=== PATIENT | male | born 1965 | race Caucasian/White ===

== ENCOUNTER 2018-11-12 20:40 | Inpatient (IN) | payer MEDICARE, OTHER ==
[2018-11-12] MEDS: IPRATROPIUM (NEB) 0.5 MG/2.5 ML AMP INH (21:27)
[2018-11-12] MEDS: ALBUTEROL 0.083% (NEB) 2.5 MG/3 ML AMP INH (21:27)
[2018-11-12 22:10] LABS: AADO2 Venous 137.2 mmHg; MODE NASAL CANNULA; MetHgb Venous 0.5 %; Site VENOUS LINE; Venous COHb 2.5 %; Venous Fraction OxyHgb 76.2 %; Venous Oxygen Sat 78.6 mmHG (55.0-75.0); Venous Total Hemglobin 6.4 g/dl
[2018-11-12] MEDS: SODIUM CHLORIDE 0.9% 1L BAG IV* (22:20)
[2018-11-12] MEDS: METHYLPREDNISOLONE 125 MG INJ IV (22:20)
[2018-11-12] MEDS: PIPER-TAZO 3.375 GM IV (PMX) 100 ML IVPB (22:20)
[2018-11-12 22:21] LABS: ADD MAN DIFF? NO
[2018-11-12 22:28] LABS: WHITE BLOOD COUNT 8.4 10^3/ul (4.8-10.8)
[2018-11-12 22:28] LABS: BASOPHIL # 0.1 10^3/ul (0.0-0.1); BASOPHILS % 0.6 % (0.0-2.0); EOSINOPHILS # 0.1 10^3/ul (0.0-0.5); EOSINOPHILS % 1.4 % (0.0-7.0); HEMATOCRIT 35.5 % (42.0-52.0); LYMPHOCYTES % 23.6 % (15.0-51.0); MEAN CORPUSCULAR VOLUME 90.3 fl (82.0-101.0); MEAN PLATELET VOLUME 12.4 fl (7.4-10.4); MONOCYTE # 0.9 10^3/ul (0.3-0.9); MONOCYTES % 10.5 % (0.0-11.0); NEUTROPHIL # 5.4 10^3/ul (1.6-7.5); NEUTROPHILS % 63.5 % (39.0-77.0); PLATELET COUNT 172 10^3/UL (140-415); RED BLOOD COUNT 3.93 10^6/ul (4.70-6.10); RED CELL DISTRIBUTION WIDTH 16.3 % (11.5-14.5)
[2018-11-12 22:44] LABS: POTASSIUM 4.3 mmol/L (3.5-5.1)
[2018-11-12 22:48] LABS: PROTIME 14.3 Sec (11.9-14.9); PT RATIO 1.1
[2018-11-12 22:49] LABS: ALANINE AMINOTRANSFERASE 20 IU/L (13-69); ALBUMIN 3.6 g/dl (3.3-4.9); ALKALINE PHOSPHATASE 79 IU/L (42-121); ANION GAP 6 (5-13); ASPARTATE AMINO TRANSFERASE 35 IU/L (15-46); BILIRUBIN,INDIRECT 0.4 mg/dl (0-1.1); BILIRUBIN,TOTAL 0.4 mg/dl (0.2-1.3); BLOOD UREA NITROGEN 30 mg/dl (7-20); C-REACTIVE PROTEIN 1.8 mg/dl (0.0-0.9); CALCIUM 8.4 mg/dl (8.4-10.2); CARBON DIOXIDE 35 mmol/L (21-31); CHLORIDE 98 mmol/L (97-110); CREATININE 1.71 mg/dl (0.61-1.24); Estimated GFR 42 mL/min (>60); GLUCOSE 189 mg/dl (70-220); PARTIAL THROMBOPLASTIN TIME 34.3 Sec (23.0-35.0); SODIUM 139 mmol/L (135-144); TOTAL PROTEIN 7.6 g/dl (6.1-8.1)
[2018-11-12 22:49] LABS: LACTIC ACID 3.2 mmol/L (0.5-2.0)
[2018-11-12] MEDS: VANCOMYCIN 1 GM (PMX) 250 ML IVPB (22:55)
[2018-11-12] MEDS: HYDROCODONE/APAP (5/325) TAB PO (22:55)
[2018-11-12 22:57] LABS: B-TYPE NATRIURETIC PEPTIDE 232 PG/ML (0-125); TROPONIN-I < 0.012 ng/ml (0.000-0.120)
[2018-11-12 23:38] LABS: ERYTHROCYTE SEDIMENTATION RATE 63 mm/Hr (0-20)
[2018-11-12] MEDS ORDERED: GLUCOSE GEL 15 GRAM TUBE BUCCAL (23:45)
[2018-11-12] MEDS ORDERED: GLUCOSE GEL 15 GRAM TUBE PO ×2 (23:45)
[2018-11-12] MEDS ORDERED: DEXTROSE 50% 50 ML SYRINGE IV ×2 (23:45)
[2018-11-12] MEDS ORDERED: GLUCAGON 1 MG INJ IM (23:45)
[2018-11-13] MEDS ORDERED: ONDANSETRON 4 MG INJ IV
[2018-11-13] MEDS ORDERED: ACETAMINOPHEN 325 MG TAB PO
[2018-11-13] MEDS ORDERED: NACL 0.9% 3 ML SYG IV
[2018-11-13 00:46] LABS: LACTIC ACID 1.5 mmol/L (0.5-2.0)
[2018-11-13] MEDS: oxyCODONE 15 MG TAB PO ×2 (01:08→17:58)
[2018-11-13] MEDS: SOD CHLORIDE 0.9% 1,000 ML IV ×3 (01:09→19:49)
[2018-11-13 01:47] LABS: LACTIC ACID 1.6 mmol/L (0.5-2.0)
[2018-11-13] MEDS: ACCU-CHEK XX (02:00)
[2018-11-13 02:50] LABS: AADO2 Arterial 21.1 mmHg (7.0-24.0); Allen Test ACCEPTAB; Arterial Base Excess 7.3 mmol/L (-3.0-3); Arterial Blood Gas Oxygen Sat 94.1 mmHG (95.0-98.0); Arterial COHb 2.2 % (0.0-3.0); Arterial Fraction of Oxyhgb 91.8 % (93.0-99.0); Arterial HCO3 36.4 mmol/L (22.0-26.0); Arterial MetHb 0.2 % (0.0-1.5); MODE NASAL CANNULA; Site Left Radial
[2018-11-13] MEDS: ALBUTEROL/IPRATROPIUM (NEB) 3 ML AMP HHN ×2 (03:26→09:00)
[2018-11-13 06:54] LABS: ADD MAN DIFF? NO
[2018-11-13 06:55] LABS: BASOPHILS % 0.2 % (0.0-2.0); HEMATOCRIT 38.1 % (42.0-52.0); HEMOGLOBIN 11.8 g/dl (14.0-18.0); LYMPHOCYTES % 11.4 % (15.0-51.0); MEAN CORPUSCULAR HEMOGLOBIN 27.6 pg (29.0-33.0); MEAN CORPUSCULAR VOLUME 89.2 fl (82.0-101.0); MEAN PLATELET VOLUME 12.6 fl (7.4-10.4); MONOCYTE # 0.1 10^3/ul (0.3-0.9); MONOCYTES % 0.7 % (0.0-11.0); NEUTROPHILS % 87.5 % (39.0-77.0); PLATELET COUNT 179 10^3/UL (140-415); RED BLOOD COUNT 4.27 10^6/ul (4.70-6.10); RED CELL DISTRIBUTION WIDTH 16.4 % (11.5-14.5)
[2018-11-13 06:55] LABS: WHITE BLOOD COUNT 9.1 10^3/ul (4.8-10.8)
[2018-11-13] MEDS ORDERED: VANCOMYCIN IV PER PHARMACY XX (07:00)
[2018-11-13 07:23] LABS: ALANINE AMINOTRANSFERASE 19 IU/L (13-69); ALBUMIN 3.7 g/dl (3.3-4.9); ALBUMIN/GLOBULIN RATIO 0.86; ALKALINE PHOSPHATASE 97 IU/L (42-121); ANION GAP 7 (5-13); ASPARTATE AMINO TRANSFERASE 32 IU/L (15-46); BILIRUBIN,INDIRECT 0.4 mg/dl (0-1.1); BILIRUBIN,TOTAL 0.4 mg/dl (0.2-1.3); BLOOD UREA NITROGEN 34 mg/dl (7-20); CALCIUM 8.3 mg/dl (8.4-10.2); CARBON DIOXIDE 33 mmol/L (21-31); CHLORIDE 99 mmol/L (97-110); CHOL/HDL RATIO 2.1 RATIO; CHOLESTEROL 126 mg/dl (100-200); CREATININE 1.77 mg/dl (0.61-1.24); Estimated GFR 40 mL/min (>60); GLUCOSE 257 mg/dl (70-220); HDL CHOLESTEROL 58 mg/dl (28-71); LDL CHOLESTEROL,CALCULATED 59 mg/dl; MAGNESIUM 1.6 mg/dl (1.7-2.5); POTASSIUM 5.4 mmol/L (3.5-5.1); SODIUM 139 mmol/L (135-144); TRIGLYCERIDES 47 mg/dl (0-149)
[2018-11-13 07:46] LABS: HEMOGLOBIN A1C 9.3 % (0-5.9)
[2018-11-13 08:10] LABS: Allen Test ACCEPTAB; Arterial Base Excess 5.2 mmol/L (-3.0-3); Arterial Blood Gas Oxygen Sat 95.7 mmHG (95.0-98.0); Arterial COHb 1.7 % (0.0-3.0); Arterial Fraction of Oxyhgb 93.8 % (93.0-99.0); Arterial HCO3 33.8 mmol/L (22.0-26.0); Arterial MetHb 0.3 % (0.0-1.5); Arterial pCO2 70.5 mmhg (35-45); Blood Gas IEPAP 15/5; Blood Gas PS 10; MODE MASK - BIPAP; Site Left Radial
[2018-11-13 08:36] LABS: THYROID STIMULATING HORMONE 0.356 MIU/L (0.465-4.680)
[2018-11-13] MEDS: INSULIN GLARGINE [LANTus] (100 UNITS/ML) SYG SC ×2 (09:15→23:24)
[2018-11-13] MEDS: INSULIN ASPART [NOVOLOG] 3 ML PEN SC ×5 (09:16→23:23)
[2018-11-13] MEDS: HEPARIN 5,000 UNIT/1 ML VIAL SC ×2 (09:17→21:28)
[2018-11-13] MEDS: GABAPENTIN 400 MG CAP PO ×3 (09:17→21:00)
[2018-11-13] MEDS: CEFEPIME 1GM/50 ML (PMX) 50 ML IVPB ×2 (09:17→21:18)
[2018-11-13] MEDS: ASPIRIN (EC) 81 MG TAB PO (09:17)
[2018-11-13] MEDS: VANCOMYCIN HCL 2 GM in SOD CHLORIDE 0.9% 500 ML IVPB (11:12)
[2018-11-13] MEDS: MAGNESIUM OXIDE 400 MG TAB PO ×2 (14:18→21:17)
[2018-11-13] MEDS ORDERED: NON-FORMULARY/PATIENT OWN MED (Simvastatin 40 MG) PO (21:00)
[2018-11-13] MEDS: ATORVASTATIN 20 MG TAB PO (21:17)
[2018-11-13] MEDS ORDERED: INSULIN GLARGINE [LANTus] (100 UNITS/ML) SYG SC (22:00)
[2018-11-14] MEDS: MAGNESIUM SULFATE 2 GM/50 ML 50 ML IVPB (00:15)
[2018-11-14] MEDS: oxyCODONE 15 MG TAB PO (00:20)
[2018-11-14] MEDS: ACCU-CHEK XX (02:00)
[2018-11-14] MEDS: SOD CHLORIDE 0.9% 1,000 ML IV ×2 (06:21→19:03)
[2018-11-14 06:44] LABS: ADD MAN DIFF? NO
[2018-11-14 06:48] LABS: WHITE BLOOD COUNT 14.9 10^3/ul (4.8-10.8)
[2018-11-14 06:48] LABS: BASOPHILS % 0.1 % (0.0-2.0); HEMATOCRIT 37.9 % (42.0-52.0); HEMOGLOBIN 11.6 g/dl (14.0-18.0); LYMPHOCYTES # 1.2 10^3/ul (0.8-2.9); LYMPHOCYTES % 8.2 % (15.0-51.0); MEAN CORPUSCULAR HEMOGLOBIN 27.5 pg (29.0-33.0); MEAN CORPUSCULAR HGB CONC 30.6 g/dl (32.0-37.0); MEAN CORPUSCULAR VOLUME 89.8 fl (82.0-101.0); MEAN PLATELET VOLUME 12.5 fl (7.4-10.4); MONOCYTE # 0.8 10^3/ul (0.3-0.9); MONOCYTES % 5.6 % (0.0-11.0); NEUTROPHIL # 12.7 10^3/ul (1.6-7.5); NEUTROPHILS % 85.6 % (39.0-77.0); PLATELET COUNT 163 10^3/UL (140-415); RED BLOOD COUNT 4.22 10^6/ul (4.70-6.10); RED CELL DISTRIBUTION WIDTH 16.4 % (11.5-14.5)
[2018-11-14 07:08] LABS: MAGNESIUM 2.1 mg/dl (1.7-2.5)
[2018-11-14 07:13] LABS: ANION GAP 9 (5-13); BLOOD UREA NITROGEN 38 mg/dl (7-20); CALCIUM 8.3 mg/dl (8.4-10.2); CARBON DIOXIDE 31 mmol/L (21-31); CHLORIDE 101 mmol/L (97-110); Estimated GFR 57 mL/min (>60); GLUCOSE 318 mg/dl (70-220); POTASSIUM 4.3 mmol/L (3.5-5.1); SODIUM 141 mmol/L (135-144)
[2018-11-14] MEDS ORDERED: INSULIN GLARGINE [LANTus] (100 UNITS/ML) SYG SC (08:00)
[2018-11-14] MEDS: MAGNESIUM OXIDE 400 MG TAB PO ×2 (08:09→20:28)
[2018-11-14] MEDS: GABAPENTIN 400 MG CAP PO ×4 (08:09→20:28)
[2018-11-14] MEDS: CEFEPIME 1GM/50 ML (PMX) 50 ML IVPB ×2 (08:09→20:28)
[2018-11-14] MEDS: ASPIRIN (EC) 81 MG TAB PO (08:09)
[2018-11-14] MEDS: INSULIN ASPART [NOVOLOG] 3 ML PEN SC ×7 (08:14→20:37)
[2018-11-14] MEDS: HEPARIN 5,000 UNIT/1 ML VIAL SC ×2 (08:15→20:39)
[2018-11-14] MEDS: INSULIN GLARGINE [LANTus] (100 UNITS/ML) SYG SC ×2 (08:39→13:32)
[2018-11-14] MEDS: VANCOMYCIN HCL 1.25 GM in SOD CHLORIDE 0.9% 250 ML IVPB (09:04)
[2018-11-14] MEDS: morphine 2 MG INJ IV ×2 (09:21→20:49)
[2018-11-14] MEDS ORDERED: PENDING SANTYL ORDER FOR WOUND CARE XX (11:00)
[2018-11-14 11:19] LABS: Allen Test ACCEPTAB; Arterial Base Excess 5.6 mmol/L (-3.0-3); Arterial Blood Gas Oxygen Sat 92.3 mmHG (95.0-98.0); Arterial COHb 0.4 % (0.0-3.0); Arterial Fraction of Oxyhgb 91.7 % (93.0-99.0); Arterial HCO3 31.2 mmol/L (22.0-26.0); Arterial MetHb 0.2 % (0.0-1.5); MODE ROOM AIR; Site Left Radial
[2018-11-14] MEDS: ARFORMOTEROL TARTRATE 15MCG/2 ML AMP NEB (20:05)
[2018-11-14] MEDS: ATORVASTATIN 20 MG TAB PO (20:28)
[2018-11-14] MEDS: VANCOMYCIN 750 MG (PMX) 250 ML IVPB (21:09)
[2018-11-15] MEDS: ACCU-CHEK XX (02:00)
[2018-11-15] MEDS: morphine 2 MG INJ IV ×2 (05:57→09:59)
[2018-11-15 07:21] LABS: ADD MAN DIFF? NO
[2018-11-15 07:26] LABS: BASOPHILS % 0.3 % (0.0-2.0); EOSINOPHILS % 0.1 % (0.0-7.0); HEMATOCRIT 37.9 % (42.0-52.0); HEMOGLOBIN 11.5 g/dl (14.0-18.0); LYMPHOCYTES # 1.9 10^3/ul (0.8-2.9); LYMPHOCYTES % 19.4 % (15.0-51.0); MEAN CORPUSCULAR HEMOGLOBIN 27.4 pg (29.0-33.0); MEAN CORPUSCULAR HGB CONC 30.3 g/dl (32.0-37.0); MEAN CORPUSCULAR VOLUME 90.5 fl (82.0-101.0); MONOCYTE # 0.8 10^3/ul (0.3-0.9); MONOCYTES % 8.4 % (0.0-11.0); NEUTROPHIL # 6.9 10^3/ul (1.6-7.5); NEUTROPHILS % 71.4 % (39.0-77.0); PLATELET COUNT 170 10^3/UL (140-415); RED BLOOD COUNT 4.19 10^6/ul (4.70-6.10); RED CELL DISTRIBUTION WIDTH 16.5 % (11.5-14.5)
[2018-11-15 07:26] LABS: WHITE BLOOD COUNT 9.6 10^3/ul (4.8-10.8)
[2018-11-15 07:50] LABS: CREATININE 0.87 mg/dl (0.61-1.24)
[2018-11-15 07:50] LABS: BLOOD UREA NITROGEN 24 mg/dl (7-20)
[2018-11-15] MEDS: MAGNESIUM OXIDE 400 MG TAB PO (08:23)
[2018-11-15] MEDS: ASPIRIN (EC) 81 MG TAB PO (08:23)
[2018-11-15] MEDS: GABAPENTIN 400 MG CAP PO ×2 (08:23→12:15)
[2018-11-15] MEDS: CEFEPIME 1GM/50 ML (PMX) 50 ML IVPB (08:24)
[2018-11-15] MEDS: INSULIN ASPART [NOVOLOG] 3 ML PEN SC ×4 (08:30→12:19)
[2018-11-15] MEDS: INSULIN GLARGINE [LANTus] (100 UNITS/ML) SYG SC (08:33)
[2018-11-15] MEDS: HEPARIN 5,000 UNIT/1 ML VIAL SC (08:33)
[2018-11-15] MEDS: ARFORMOTEROL TARTRATE 15MCG/2 ML AMP NEB (09:30)
[2018-11-15] MEDS: VANCOMYCIN 750 MG (PMX) 250 ML IVPB (09:36)
[2018-11-15] MEDS: COLLAGENASE 5 GM (UD JAR) TOP (10:00)
[2018-11-15] MEDS: SOD CHLORIDE 0.9% 1,000 ML IV (12:22)
[2018-11-15] MEDS: oxyCODONE 15 MG TAB PO (15:52)
[2018-11-15] MEDS ORDERED: INSULIN GLARGINE [LANTus] (100 UNITS/ML) SYG SC (16:00)
== END 2018-11-15 16:31 | disposition home or self-care (01) | DRG 637 ==
LOC: TEL 22:47 → E/R 20:40 → 5EC 11-14 12:10
PROC: 5A09357 Assistance with Respiratory Ventilation, Less than 24 Consecutive Hours, Continuous Positive Airway Pressure (ICD-10-PCS; principal; 2018-11-13)
DX: E11.628 Type 2 diabetes mellitus with other skin complications (principal); I50.33 Acute on chronic diastolic (congestive) heart failure; L03.116 Cellulitis of left lower limb; L97.429 Non-pressure chronic ulcer of left heel and midfoot with unspecified severity; E66.2 Morbid (severe) obesity with alveolar hypoventilation; Z68.43 Body mass index [BMI] 50.0-59.9, adult; E11.621 Type 2 diabetes mellitus with foot ulcer; E11.51 Type 2 diabetes mellitus with diabetic peripheral angiopathy without gangrene; E11.65 Type 2 diabetes mellitus with hyperglycemia; N28.9 Disorder of kidney and ureter, unspecified; F17.200 Nicotine dependence, unspecified, uncomplicated; D50.9 Iron deficiency anemia, unspecified; J44.9 Chronic obstructive pulmonary disease, unspecified; Z79.4 Long term (current) use of insulin; Z79.82 Long term (current) use of aspirin
CPT/HCPCS: 36415; 36600; 71045; 73590; 73620-52; 80048; 80053; 80061; 82565; 82803; 82962; 83036; 83605; 83735; 83880; 84443; 84484; 84520; 85025; 85610; 85651; 85730; 86140; 87040-91; 87070; 93005; 93306; 93971; 94640; 94644; 94660; 94664; 96365; 96375; 97116; 97161; 99291-25